=== PATIENT | female | born 1950 | race Caucasian/White ===

== ENCOUNTER → 2016-12-07 | Outpatient (CLI) | payer MEDICARE, OTHER | END | disposition home or self-care (01) | LOC: PCVCCLINIC 14:27 | PROVIDERS: ATTEND Internal Medicine Cardiovascular Disease | DX: E78.5 Hyperlipidemia, unspecified (principal); R00.0 Tachycardia, unspecified; J44.9 Chronic obstructive pulmonary disease, unspecified; M19.90 Unspecified osteoarthritis, unspecified site; K21.9 Gastro-esophageal reflux disease without esophagitis; E03.9 Hypothyroidism, unspecified; M81.0 Age-related osteoporosis without current pathological fracture; F17.200 Nicotine dependence, unspecified, uncomplicated; F51.04 Psychophysiologic insomnia; Z78.0 Asymptomatic menopausal state; Z90.710 Acquired absence of both cervix and uterus; Z79.82 Long term (current) use of aspirin; Z79.899 Other long term (current) drug therapy | CPT/HCPCS: 93005; G0463 ==

== ENCOUNTER → 2016-12-31 | Outpatient (CLI) | payer MEDICARE, OTHER ==
[~2016-12-31] MED LIST: REGADENOSON 0.4 MG/5 ML DISP.SYRIN. IV ONE
--- NOTE | 2016-12-31 12:29 | PCVCIMAG ---
APPROVED REPORT Exam: Nuclear Stress Test Indication: Dyspnea, Chest pain, Fatigue Patient Location: Out-Patient Stress Nurse: Bambi Dsouza RN, Radha Fuchs RN NE Tech:Suki Loretta [facility] Ht: 5 ft 3 in Wt: 160 lbs BSA: 1.76 m2 HR: 79 bpm BP: 141/85 mmHg BMI: 28.3 Rhythm: SR Medical History Medical History: HTN, COPD, Smoking - Current at 50 packs/year Medications: Lipitor, Advair, Synthroid, Ativan Allergies: No known drug allergies Pretest Chest Pain Characteristics: No chest pain Exercise History: Physically active Stress Test Details Stress Test: Pharmacologic stress testing performed using 0.4 mg of regadenoson per 5 mL given IV over 10 seconds. Reason for pharmacologic stress test: physical limitation. HR Resting HR: 79 bpmMax Heart Rate (APMHR): 152 bpm Max HR Achieved: 108 bpmTarget HR (85% APMHR): 129 bpm % of APMHR: 71 Recovery HR: 106 bpm BP Resting BP: 141/85 mmHg Max BP: 137/81 mmHg Recovery BP: 119/61 mmHg ECG Resting ECG: Sinus Rhythm Stress ECG: Sinus Tachycardia ST Change: Non-ischemic Recovery ECG: Sinus Tachycardia Clinical Reason for Termination: Completed protocol Stress Symptoms: Abdominal discomfort, Dyspnea, Epigastricl discomfort Symptoms resolved during recovery. NM EXAM: Myocardial Perfusion REST/STRESS Imaging Protocol: Rest Tc-99m/Stress Tc-99m 1 day Resting Data Rest SPECT myocardial perfusion imaging was performed in supine position 45 minutes following the intravenous injection of 10.7 mCi of Tc-99m Sestamibi. Time of rest injection: 0800 Date: 12/31/2016 Pharmacologic Stress Pharmacologic stress test was performed by injecting Regadenoson 0.4 mg IV push followed by the intravenous injection of 33.5 mCi of Tc-99m Sestamibi. Time of stress injection: 929 Date: 12/31/2016 Administration Route: IV Administration Site: Right AC Gated Stress SPECT was performed 45 minutes after stress injection. The images were gated to evaluate regional wall motion and calculate left ventricular ejection fraction. Study Quality Study: Good Artifact: Mild Soft tissue attenuation artifact Study Data Post stress, the left ventricular ejection was 71%.. SSS: 0 SRS: 9 SDS: 0 TID = 0.84. Perfusion There is a small area of moderately reduced uptake in the apical segment of the anterior wall which is seen on the stress images as well as the resting images. This area thickens and moves normally and is most consistent with attenuation artifact. Wall Motion Normal left ventricular wall motion. Clinical Findings: Nondiagnostic EKG Findings: Nonischemic Nuclear Conclusion This study is of low probability for inducible ischemia or prior infarct. Normal global and segmental LV systolic function.
== END | disposition home or self-care (01) ==
LOC: PCVCIMAG 07:50
PROVIDERS: ATTEND Internal Medicine Cardiovascular Disease
DX: I10 Essential (primary) hypertension (principal); J44.9 Chronic obstructive pulmonary disease, unspecified; R00.0 Tachycardia, unspecified; E78.5 Hyperlipidemia, unspecified; K21.9 Gastro-esophageal reflux disease without esophagitis; M19.90 Unspecified osteoarthritis, unspecified site; Z72.0 Tobacco use; Z79.82 Long term (current) use of aspirin
CPT/HCPCS: 78452; 93017; A9500; J2785